=== PATIENT | female | born 2000 | race Caucasian/White ===

== ENCOUNTER 2018-02-11 12:57 | Emergency (ER) | payer BC ==
[~2018-02-11] VITALS: Ht 170.2 cm; Wt 56.7 kg
--- NOTE | 2018-02-11 13:00 | NUR ---
PT TO ER BED 11 C/O DIFFUSE ABDOMINAL DISCOMFOR W/ N/V/D. GOWNED AND PLACED ON MONITOR. VSS. AWAITING MD PAIGE.
--- NOTE | 2018-02-11 13:45 | NUR ---
ALEJANDRA ALEXANDER AT BEDSIDE FOR EVAL.
[2018-02-11] MEDS ORDERED: IV NS 0.9% 1,000 ML BAG IV ONE ×2 (14:00→15:30)
[2018-02-11] MEDS ORDERED: ONDANSETRON HCL/PF 4 MG/2 ML VIAL IVP ONE (14:00)
[2018-02-11 14:03] LABS: EOSINOPHILS % (AUTO) 0.2 % (0.0-6.0); HEMATOCRIT 43 % (33-45); HEMOGLOBIN 14.7 g/dL (11.5-14.8); LYMPHOCYTES # (AUTO) 0.7 /CMM (0.8-4.8); LYMPHOCYTES % (AUTO) 5.4 % (20.0-44.0); MEAN CORPUSCULAR HGB CONC 34 g/dl (31.0-36.0); MEAN CORPUSCULAR VOLUME 91 fL (82-100); MONOCYTES # (AUTO) 0.7 /CMM (0.1-1.30); MONOCYTES % (AUTO) 5.7 % (2.0-12.0); NEUTROPHILS # (AUTO) 11.2 /CMM (1.8-8.9); NEUTROPHILS % (AUTO) 88.7 % (43.0-81.0); PLATELET COUNT (AUTO) 262 /CMM (150-450); RDW COEFFICIENT OF VARIATION 10.7 (11.5-15.0); RED BLOOD CELL COUNT(AUTO) 4.77 MIL/uL (4.0-5.2); WHITE BLOOD COUNT (AUTO) 12.6 K/uL (4.3-11.0)
[2018-02-11 14:10] LABS: CALCIUM, SERUM 9.3 mg/dL (8.5-10.1); CREATININE 0.8 mg/dL (0.6-1.3)
[2018-02-11] MEDS ORDERED: ONDANSETRON HCL/PF 4 MG/2 ML VIAL ONE ×2 (14:13→16:39)
[2018-02-11 14:16] LABS: ALBUMIN 4.3 g/dL (3.4-5.0); BILIRUBIN,DIRECT 0.1 mg/dL (0.0-0.2); BILIRUBIN,TOTAL 0.7 mg/dL (0.2-1.0); TOTAL PROTEIN, SERUM 7.4 g/dL (6.4-8.2)
--- NOTE | 2018-02-11 14:40 | NUR ---
PT STILL UNABLE TO PROVIDE URINE SAMPLE AT THIS TIME.
[2018-02-11] MEDS ORDERED: ONDANSETRON HCL/PF 4 MG/2 ML VIAL IV STA (15:50)
[2018-02-11 16:19] LABS: APPEARANCE,URINE CLOUDY (CLEAR); BILIRUBIN,URINE NEGATIVE (NEGATIVE); BLOOD, URINE TRACE-INTA Ery/uL (NEGATIVE); COLOR,URINE YELLOW (YELLOW); KETONES,URINE 3+ (NEGATIVE); LEUKOCYTE ESTERASE ,URINE NEGATIVE (NEGATIVE); NITRITE, URINE NEGATIVE (NEGATIVE); PH,URINE 8.5 (5.0-8.0); PROTEIN,URINE 1+ mg/dl (NEGATIVE); UGLUCOSE NEGATIVE (NEGATIVE); UROBILINOGEN,URINE 0.2 EU/dL (0.2)
[2018-02-11] MEDS ORDERED: diphenhydrAMINE HCL 50 MG/ML VIAL IV STA (16:25)
[2018-02-11 16:26] LABS: BACTERIA,URINE Moderate /HPF (None Seen); RBC,URINE 0-2 /HPF (0-2); SQUAMOUS EPITHELIAL CELL,UR Few /HPF (None Seen)
[2018-02-11 16:27] LABS: URINE AMORPHOUS PHOSPHATES Moderate /HPF (None Seen)
[2018-02-11] MEDS ORDERED: METOCLOPRAMIDE HCL 10 MG/2 ML VIAL IV ONE (16:30)
[2018-02-11] MEDS ORDERED: METOCLOPRAMIDE HCL 10 MG/2 ML VIAL ONE (16:39)
[2018-02-11] MEDS ORDERED: diphenhydrAMINE HCL 50 MG/ML VIAL ONE (16:39)
[2018-02-11] MEDS ORDERED: LORAZEPAM INJ 2 MG/ML VIAL IV STA (16:43)
[2018-02-11] MEDS ORDERED: LORAZEPAM INJ 2 MG/ML VIAL ONE (16:46)
--- NOTE | 2018-02-11 17:13 | NUR ---
Patient discharged to home in stable condition. Written and verbal after care instructions given. Patient verbalizes understanding of instruction.IV removed. Catheter intact and site benign. Pressure and 4x4 applied to site. No bleeding noted.
[2018-02-11 17:14] VITALS: BP 122/77
== END 2018-02-11 17:15 | disposition home or self-care (01) ==
LOC: ER 13:00
DX: R11.2 Nausea with vomiting, unspecified (principal)
CPT/HCPCS: 36415; 80048; 80076; 81001; 83690; 84703; 85025; 87086; 96361; 96374; 96375; 99284; A4606; J2060; J2405; J7030 ×2; Z7610; 81000-TC; J1200; J2765

== ENCOUNTER 2018-02-13 10:52 | Emergency (ER) | payer BC ==
[~2018-02-13] VITALS: Ht 170.2 cm; Wt 56.7 kg
--- NOTE | 2018-02-13 11:46 | NUR ---
KATJA LOREDO AT BEDSIDE FOR EVAL.
[2018-02-13] MEDS ORDERED: IV NS 0.9% 1,000 ML BAG IV ONE (12:00)
[2018-02-13] MEDS ORDERED: diphenhydrAMINE HCL 50 MG/ML VIAL IV ONE (12:00)
[2018-02-13] MEDS ORDERED: PROCHLORPERAZINE EDISYLATE 10 MG/2 ML VIAL IVP ONE (12:00)
[2018-02-13] MEDS ORDERED: diphenhydrAMINE HCL 50 MG/ML VIAL ONE (12:03)
[2018-02-13] MEDS ORDERED: PROCHLORPERAZINE EDISYLATE 10 MG/2 ML VIAL ONE (12:03)
[2018-02-13 12:06] LABS: BASOPHILS % (AUTO) 0.1 % (0.0-2.0); HEMATOCRIT 45 % (33-45); LYMPHOCYTES % (AUTO) 10.3 % (20.0-44.0); MEAN CORPUSCULAR HGB CONC 33 g/dl (31.0-36.0); MEAN CORPUSCULAR VOLUME 91 fL (82-100); MONOCYTES # (AUTO) 0.7 /CMM (0.1-1.30); NEUTROPHILS # (AUTO) 7.5 /CMM (1.8-8.9); NEUTROPHILS % (AUTO) 81.6 % (43.0-81.0); PLATELET COUNT (AUTO) 247 /CMM (150-450); RDW COEFFICIENT OF VARIATION 11.1 (11.5-15.0); RED BLOOD CELL COUNT(AUTO) 4.96 MIL/uL (4.0-5.2); WHITE BLOOD COUNT (AUTO) 9.3 K/uL (4.3-11.0)
[2018-02-13 12:14] LABS: CALCIUM, SERUM 9.1 mg/dL (8.5-10.1); POTASSIUM 3.7 mmol/L (3.5-5.1)
--- NOTE | 2018-02-13 12:20 | NUR ---
RLQ ABDOMINAL PAIN W/ N/V SEEN 2 DAYS AGO FOR SAME REASON. PT AAOX3, VSS. DENIES CP, SOB, DIZZINESS. PT SEEN & EVAL'D BY BENJAMIN HIGHTOWER. MEDICATED FOR N/V, PT ALEJANDRA WELL. WILL CONT TO MONITOR.
[2018-02-13 12:25] LABS: ALBUMIN 4.5 g/dL (3.4-5.0); BILIRUBIN,DIRECT 0.2 mg/dL (0.0-0.2); BILIRUBIN,TOTAL 0.6 mg/dL (0.2-1.0); TOTAL PROTEIN, SERUM 7.8 g/dL (6.4-8.2)
[2018-02-13] MEDS ORDERED: LORAZEPAM 1 MG TABLET PO ONE (13:30)
[2018-02-13] MEDS ORDERED: LORAZEPAM INJ 2 MG/ML VIAL ONE (13:48)
[2018-02-13] MEDS ORDERED: LORAZEPAM INJ 2 MG/ML VIAL IV ONE (14:00)
[2018-02-13 14:07] VITALS: BP 132/86
== END 2018-02-13 14:08 | disposition home or self-care (01) ==
LOC: ER 10:57
DX: R11.2 Nausea with vomiting, unspecified (principal); F41.9 Anxiety disorder, unspecified
CPT/HCPCS: 36415; 80048; 80076; 83690; 85025; 96361; 96374; 96375; 99284; A4606; J0780; J1200; J2060; J7030; Z7610

== ENCOUNTER 2024-07-28 18:05 | Inpatient (IN) | payer BC, OTHER ==
[~2024-07-28] VITALS: Ht 170.2 cm; Wt 78.5 kg
[2024-07-28] MEDS ORDERED: ONDANSETRON 4 MG TAB.RAPDIS ONE (19:00)
[2024-07-28] MEDS: ONDANSETRON HCL 4 MG/5 ML SOLUTION PO ONE (19:00)
[2024-07-28 19:16] LABS: APPEARANCE,URINE CLOUDY (CLEAR); BILIRUBIN,URINE 2+ (NEGATIVE); BLOOD, URINE 3+ Ery/uL (NEGATIVE); COLOR,URINE YELLOW (YELLOW); KETONES,URINE TRACE mg/dL (NEGATIVE); LEUKOCYTE ESTERASE ,URINE 1+ (NEGATIVE); NITRITE, URINE POSITIVE (NEGATIVE); PROTEIN,URINE 3+ mg/dl (NEGATIVE); UGLUCOSE TRACE mg/dL (NEGATIVE)
[2024-07-28 19:19] LABS: PREGNANCY TEST URINE QUAL NEGATIVE (NEGATIVE)
[2024-07-28] MEDS: KETOROLAC TROMETHAMINE 15 MG/ML VIAL IM ONE (19:45)
[2024-07-28] MEDS ORDERED: KETOROLAC TROMETHAMINE 15 MG/ML VIAL ONE (19:45)
[2024-07-28 19:52] LABS: WBC,URINE TOO NUMEROUS TO COUN /HPF (0-3)
[2024-07-28 19:53] LABS: ADD URINE CULTURE YES; BACTERIA,URINE Many /HPF (None Seen); SQUAMOUS EPITHELIAL CELL,UR Many /HPF (None Seen)
[2024-07-28] MEDS ORDERED: IOHEXOL-300 100 ML VIAL IV ONE (20:54)
[2024-07-28] MEDS ORDERED: IV NS 0.9% 250 ML IV ONE (20:55)
[2024-07-28] MEDS: LORAZEPAM 1 MG TABLET PO ONE (21:07)
[2024-07-28] MEDS: IV NS 0.9% 1,000 ML BAG IV ONE (21:21)
[2024-07-28 21:28] LABS: CALCIUM, SERUM 8.9 mg/dL (8.5-10.1); CREATININE 1.6 mg/dL (0.6-1.3)
[2024-07-28 21:31] LABS: EOSINOPHILS # (AUTO) 0.1 K/uL (0.0-0.7); EOSINOPHILS % (AUTO) 0.4 % (0.0-6.0); HEMATOCRIT 37 % (33-45); HEMOGLOBIN 12.3 g/dL (11.5-14.8); LYMPHOCYTES # (AUTO) 0.3 K/uL (0.8-4.8); LYMPHOCYTES % (AUTO) 1.9 % (20.0-44.0); MEAN CORPUSCULAR HEMOGLOBIN 29 PG (26.0-33.0); MEAN CORPUSCULAR HGB CONC 34 g/dl (31.0-36.0); MEAN CORPUSCULAR VOLUME 86 fL (82-100); MONOCYTES # (AUTO) 1.9 K/uL (0.1-1.30); MONOCYTES % (AUTO) 11.7 % (2.0-12.0); NEUTROPHILS # (AUTO) 14.1 K/uL (1.8-8.9); PLATELET COUNT (AUTO) 223 K/uL (150-450); RED BLOOD CELL COUNT(AUTO) 4.25 MIL/uL (4.0-5.2); RED CELL DISTRIBUTION WIDTH 12.9 % (11.5-15.0); WHITE BLOOD COUNT (AUTO) 16.4 K/uL (4.3-11.0)
[2024-07-28] MEDS: CIPROFLOXACIN IV RTU 400 MG in PREMIX 1 EA IV SCH (21:55)
[2024-07-28] MEDS ORDERED: CIPROFLOXACIN IV RTU 200 ML IV ONE (21:55)
[2024-07-28] MEDS ORDERED: hydrALAZINE HCL IV 20 MG VIAL IV PRN (23:00)
[2024-07-28] MEDS ORDERED: MORPHINE SULFATE INJ 2 MG/ML DISP.SYRIN IV PRN (23:00)
[2024-07-28 23:08] LABS: LYMPHOCYTES % (MANUAL) 2 % (16-48); MONOCYTES % (MANUAL) 9 % (0-11.0); NEUTROPHILS % (MANUAL) 89 (42-76)
[2024-07-28 23:10] LABS: PLATELET ESTIMATE ADEQUATE
[2024-07-29 00:10] VITALS: BP 108/62; TEMP 97.5; O2SAT 99
[2024-07-29] MEDS: IV NS 0.9% 1,000 ML IV SCH (00:28)
[2024-07-29] MEDS ORDERED: CEFEPIME 2 GM in IV NS 0.9% 100 ML IV ONE (00:30)
[2024-07-29] MEDS ORDERED: CEFEPIME 1 GM VIAL ONE (00:56)
[2024-07-29] MEDS: CEFEPIME 1 GM in IV NS 0.9% 100 ML IV ONE (01:01)
[2024-07-29 01:59] VITALS: BP 108/62; TEMP 97.5
[2024-07-29] MEDS: ACETAMINOPHEN 325 MG TABLET PO PRN (02:37)
[2024-07-29] MEDS: POTASSIUM CHLORIDE 20 MEQ TAB.PRT.SR PO ONE (04:08)
[2024-07-29 07:05] LABS: BASOPHILS % (AUTO) 0.1 % (0.0-2.0); EOSINOPHILS % (AUTO) 0.1 % (0.0-6.0); HEMATOCRIT 32 % (33-45); LYMPHOCYTES # (AUTO) 0.4 K/uL (0.8-4.8); LYMPHOCYTES % (AUTO) 3.4 % (20.0-44.0); MEAN CORPUSCULAR HEMOGLOBIN 30 PG (26.0-33.0); MEAN CORPUSCULAR HGB CONC 35 g/dl (31.0-36.0); MEAN CORPUSCULAR VOLUME 87 fL (82-100); MONOCYTES # (AUTO) 1.4 K/uL (0.1-1.30); MONOCYTES % (AUTO) 12.3 % (2.0-12.0); NEUTROPHILS # (AUTO) 9.5 K/uL (1.8-8.9); NEUTROPHILS % (AUTO) 84.1 % (43.0-81.0); PLATELET COUNT (AUTO) 173 K/uL (150-450); RED BLOOD CELL COUNT(AUTO) 3.65 MIL/uL (4.0-5.2); RED CELL DISTRIBUTION WIDTH 12.9 % (11.5-15.0); WHITE BLOOD COUNT (AUTO) 11.3 K/uL (4.3-11.0)
[2024-07-29 07:16] LABS: ALBUMIN 1.9 g/dL (3.4-5.0); CALCIUM, SERUM 8.4 mg/dL (8.5-10.1); CREATININE 1.4 mg/dL (0.6-1.3); MAGNESIUM 2.1 mg/dL (1.8-2.4); PHOSPHORUS 1.9 mg/dL (2.5-4.9); TOTAL PROTEIN, SERUM 5.6 g/dL (6.4-8.2)
[2024-07-29] MEDS ORDERED: QUET25TA PO (08:39)
[2024-07-29] MEDS ORDERED: BUPR8TAB4 SL (08:39)
[2024-07-29] MEDS: HEPARIN SODIUM, PORCINE 5000 UNITS/1 ML VIAL SQ SCH (08:44)
[2024-07-29] MEDS: ONDANSETRON HCL/PF 4 MG/2 ML VIAL IVP PRN (08:50)
[2024-07-29] MEDS: IV NS 0.9% 1,000 ML IV PRN (12:37)
[2024-07-29] MEDS: CEFEPIME 1 GM in IV D5W 50 ML IV SCH (12:38)
[2024-07-29 14:18] LABS: LYMPHOCYTES % (MANUAL) 5 % (16-48); MONOCYTES % (MANUAL) 7 % (0-11.0); NEUTROPHILS % (MANUAL) 88 (42-76)
[2024-07-29 14:19] LABS: PLATELET ESTIMATE ADEQUATE
[2024-07-29] MEDS: MEROPENEM 1 G in IV NS 0.9% 100 ML IV SCH (14:24)
[2024-07-29] MEDS: HYDROMORPHONE 1 MG/1 ML DISP.SYRIN IV PRN (15:00)
[2024-07-29] MEDS: K PHOS NEUTRAL 250 MG TABLET PO ONE (16:03)
[2024-07-29 20:00] VITALS: BP 92/54; TEMP 99; O2SAT 99
[2024-07-29] MEDS: MAG HYDROX/AL HYDROX/SIMETH 30 ML UDC PO PRN (21:30)
[2024-07-30 08:00] VITALS: BP 95/61; TEMP 97.9; O2SAT 97
[2024-07-30 12:29] LABS: BASOPHILS % (AUTO) 0.2 % (0.0-2.0); EOSINOPHILS # (AUTO) 0.1 K/uL (0.0-0.7); EOSINOPHILS % (AUTO) 0.7 % (0.0-6.0); HEMATOCRIT 31 % (33-45); HEMOGLOBIN 10.7 g/dL (11.5-14.8); LYMPHOCYTES # (AUTO) 0.8 K/uL (0.8-4.8); LYMPHOCYTES % (AUTO) 9.1 % (20.0-44.0); MEAN CORPUSCULAR HEMOGLOBIN 30 PG (26.0-33.0); MEAN CORPUSCULAR HGB CONC 34 g/dl (31.0-36.0); MEAN CORPUSCULAR VOLUME 86 fL (82-100); MONOCYTES # (AUTO) 1.2 K/uL (0.1-1.30); MONOCYTES % (AUTO) 12.7 % (2.0-12.0); NEUTROPHILS # (AUTO) 7.2 K/uL (1.8-8.9); NEUTROPHILS % (AUTO) 77.3 % (43.0-81.0); PLATELET COUNT (AUTO) 211 K/uL (150-450); RED BLOOD CELL COUNT(AUTO) 3.62 MIL/uL (4.0-5.2); RED CELL DISTRIBUTION WIDTH 13.2 % (11.5-15.0); WHITE BLOOD COUNT (AUTO) 9.3 K/uL (4.3-11.0)
[2024-07-30 12:39] LABS: ALBUMIN 1.8 g/dL (3.4-5.0); BILIRUBIN,TOTAL 2.5 mg/dL (0.2-1.0); CALCIUM, SERUM 8.2 mg/dL (8.5-10.1); CREATININE 1.1 mg/dL (0.6-1.3); MAGNESIUM 2.5 mg/dL (1.8-2.4); POTASSIUM 2.9 mmol/L (3.5-5.1); TOTAL PROTEIN, SERUM 5.9 g/dL (6.4-8.2)
[2024-07-30 12:50] LABS: THYROID STIMULATING HORMONE 0.09 uIU/mL (0.358-3.74); URIC ACID 2.9 mg/dL (2.6-7.2)
[2024-07-30] MEDS: NEUTRA PHOS 1 POWD.PACKET PO ONE (15:28)
[2024-07-30] MEDS: POTASSIUM CHLORIDE 20 MEQ TAB.PRT.SR PO SCH (15:28)
[2024-07-30 16:10] LABS: BILIRUBIN,TOTAL 2.3 mg/dL (0.2-1.0)
[2024-07-30 17:38] VITALS: BP 103/71; TEMP 99.1; O2SAT 100
[2024-07-30 21:23] VITALS: BP 112/66; TEMP 99.3; O2SAT 97
[2024-07-31 05:44] VITALS: BP 99/71; TEMP 99; O2SAT 98
[2024-07-31 07:00] VITALS: BP 107/71; TEMP 98.4; O2SAT 98
[2024-07-31 07:32] LABS: ALBUMIN 1.7 g/dL (3.4-5.0); BILIRUBIN,TOTAL 1.9 mg/dL (0.2-1.0); CALCIUM, SERUM 8.3 mg/dL (8.5-10.1); CREATININE 0.9 mg/dL (0.6-1.3); MAGNESIUM 2.3 mg/dL (1.8-2.4); PHOSPHORUS 2.2 mg/dL (2.5-4.9); POTASSIUM 3.6 mmol/L (3.5-5.1); TOTAL PROTEIN, SERUM 5.7 g/dL (6.4-8.2)
[2024-07-31 07:41] LABS: BASOPHILS % (AUTO) 0.4 % (0.0-2.0); EOSINOPHILS # (AUTO) 0.3 K/uL (0.0-0.7); EOSINOPHILS % (AUTO) 3.5 % (0.0-6.0); HEMATOCRIT 32 % (33-45); HEMOGLOBIN 10.6 g/dL (11.5-14.8); LYMPHOCYTES # (AUTO) 1.2 K/uL (0.8-4.8); LYMPHOCYTES % (AUTO) 15.3 % (20.0-44.0); MEAN CORPUSCULAR HEMOGLOBIN 29 PG (26.0-33.0); MEAN CORPUSCULAR HGB CONC 33 g/dl (31.0-36.0); MEAN CORPUSCULAR VOLUME 87 fL (82-100); MONOCYTES # (AUTO) 1.4 K/uL (0.1-1.30); MONOCYTES % (AUTO) 18.3 % (2.0-12.0); NEUTROPHILS # (AUTO) 4.7 K/uL (1.8-8.9); NEUTROPHILS % (AUTO) 62.5 % (43.0-81.0); PLATELET COUNT (AUTO) 223 K/uL (150-450); RED BLOOD CELL COUNT(AUTO) 3.61 MIL/uL (4.0-5.2); WHITE BLOOD COUNT (AUTO) 7.5 K/uL (4.3-11.0)
[2024-07-31 10:12] LABS: PTH, INTACT 20 pg/mL (15-65)
[2024-07-31 13:14] LABS: BAND % (MANUAL) 1 % (0.0-5.0); EOSINOPHILS % (MANUAL) 3 % (0-4); LYMPHOCYTES % (MANUAL) 18 % (16-48); MONOCYTES % (MANUAL) 8 % (0-11.0); NEUTROPHILS % (MANUAL) 70 (42-76); PLATELET ESTIMATE ADEQUATE
[2024-07-31] MEDS: NEUTRA PHOS 1 POWD.PACKET PO ONE (15:51)
[2024-07-31 16:00] VITALS: BP 128/78; TEMP 98.4; O2SAT 99
[2024-07-31 20:00] VITALS: BP 119/78; TEMP 98.6; O2SAT 100
[2024-08-01 08:29] VITALS: BP 107/62; TEMP 98.4; O2SAT 98
[2024-08-01] MEDS ORDERED: CIPR500S2 PO (12:16)
== END 2024-08-01 12:15 | disposition home or self-care (01) | DRG 872 ==
LOC: ER 18:15 → MED 23:22
PROVIDERS: ADMIT Nurse Practitioner Acute Care; ATTEND Nurse Practitioner Acute Care
DX: A41.9 Sepsis, unspecified organism (principal); N10 Acute pyelonephritis; N17.9 Acute kidney failure, unspecified; E87.1 Hypo-osmolality and hyponatremia; E87.6 Hypokalemia; E80.6 Other disorders of bilirubin metabolism; Z87.440 Personal history of urinary (tract) infections; E88.09 Other disorders of plasma-protein metabolism, not elsewhere classified; N76.0 Acute vaginitis; E05.90 Thyrotoxicosis, unspecified without thyrotoxic crisis or storm; D64.9 Anemia, unspecified; E83.39 Other disorders of phosphorus metabolism; F11.11 Opioid abuse, in remission; B96.20 Unspecified Escherichia coli [E. coli] as the cause of diseases classified elsewhere
CPT/HCPCS: 36415; 76770-TC; 80048-TC; 80053-TC; 81001; 82247-TC; 82248-TC; 82550-TC; 83735-TC; 83970; 84100-TC; 84155; 84165; 84439-TC; 84443-TC; 84550-TC; 84703-TC; 85025-TC; 87081-TC; 87086-TC; 87186-TC; 97116-TC; 97530-TC; A4216; A4223; G0378; J0692; J0744; J1171; J1644; J1885; J2185; J2405; J7030; J7050; J7060; Q0162; Q9967